=== PATIENT | female | born 1985 | race Caucasian/White ===

== ENCOUNTER 2017-01-22 10:18 | Day surgery (SDC) | payer OTHER ==
[2017-01-21 11:21] VITALS: BMI 30.2
--- NOTE | 2017-01-21 17:18 | PREOPHP ---
DATE OF ADMISSION: 01/22/2017 REASON FOR ADMISSION: Laparoscopic bilateral tubal ligation. HISTORY OF PRESENT ILLNESS: This is a 31-year-old female, 4, para 3, who has requested ster ilization on the basis of multiparity. The alternatives to this, the benefits from it, the risks, a nd possible complications, as well as 1% failure rate were discussed in the office in detail. She w as allowed to ask questions and all her questions were answered to her satisfaction, and she signed the appropriate surgical informed consents. PAST MEDICAL HISTORY: The patient denies any medical problems including cardiovascular disease, hyp ertension, diabetes, renal disease, liver disease, thyroid disease and neurological problems. ALLERGIES: SHE HAS NO KNOWN ALLERGIES. MEDICATIONS: She takes no medications on a regular basis. FAMILY HISTORY: Noncontributory. REVIEW OF SYSTEMS: A 12-point review of systems is noncontributory. PHYSICAL EXAMINATION: GENERAL: Well-developed and nourished, in no distress, alert and oriented x3. VITAL SIGNS: Showed temperature to be 98, blood pressure 130/82, respirations 16 per minute, the pu lse is 72 per minute, regular. Her height is 5 feet 2 inches and weight 160 pounds. HEENT: Within normal limits. Pupils are PERRLA. NECK: Supple. Thyroid is not palpable. There is no lymphadenopathy. BREASTS: Show no masses or lumps. LUNGS: Clear to percussion and auscultation. HEART: Normal sinus rhythm without a murmur. ABDOMEN: Soft. There is no hepatosplenomegaly or hernias. PELVIC: Normal external genitalia. Vagina is normal. Cervix is normal without lesions. Uterus is small, firm. There are no adnexal masses present. LOWER EXTREMITIES: Within normal limits. NEUROLOGIC: Also normal. IMPRESSION: Multiparity, desires sterilization. To be admitted tomorrow, 01/22/2017 for laparoscop ic bilateral tubal ligation. Dictated By: KELSEA SCHWARTZ/NEIL Conf#: [id number] DID#: [id number]
[~2017-01-22] VITALS: Ht 154.9 cm; Wt 72.1 kg
[2017-01-22] VITALS (11 sets, daily range): BP systolic 106–120; BP diastolic 55–74; PULSE 72–96; RESP 12–18; Ht 154.9 cm; Wt 72.1 kg
[2017-01-22] MEDS ORDERED: BUPIVACAINE 0.5%/EPI (SDV) 30 ML INJ ONE (12:30)
[2017-01-22] MEDS ORDERED: FENTAnyl 50 MCG/ML VIAL ONE ×2 (13:12→13:46)
[2017-01-22] MEDS ORDERED: MIDAZOLAM 1 MG/ML 2 ML INJ ONE (13:12)
[2017-01-22] MEDS ORDERED: GLYCOPYRROLATE 0.4 MG INJ ONE (13:12)
[2017-01-22] MEDS ORDERED: ONDANSETRON 4 MG INJ ONE (13:12)
[2017-01-22] MEDS ORDERED: CEFAZOLIN 1 GM INJ ONE (13:12)
[2017-01-22] MEDS ORDERED: PROPOFOL 20 ML ONE (13:12)
[2017-01-22] MEDS ORDERED: ROCURONIUM 50 MG INJ ONE (13:12)
[2017-01-22] MEDS ORDERED: NEOSTIGMINE 3 MG/3 ML SYRINGE ONE (13:12)
[2017-01-22] MEDS ORDERED: DEXAMETHASONE 4 MG/ML 1 ML INJ ONE (13:12)
[2017-01-22] MEDS ORDERED: KETOROLAC 30 MG INJ ONE (13:40)
[2017-01-22] MEDS ORDERED: SUGAMMADEX SODIUM 200 MG/2 ML VIAL IV ONE (13:52)
[2017-01-22] MEDS ORDERED: ALBUTEROL 0.083% (NEB) 2.5 MG/3 ML AMP HHN PRN (14:00)
[2017-01-22] MEDS ORDERED: LABETALOL HCL 20MG INJ IV PRN (14:00)
[2017-01-22] MEDS ORDERED: HYDROmorphONE (0.2 MG/ML) 10ML SYG IV PRN ×3 (14:00)
[2017-01-22] MEDS ORDERED: DIPHENHYDRAMINE 50 MG INJ IV PRN (14:00)
[2017-01-22] MEDS ORDERED: OXYCODONE/ACETAMINOPHEN (5/325) TAB PO PRN ×4 (14:00→14:30)
[2017-01-22] MEDS ORDERED: EPHEDrine SULFATE 50 MG/5 ML SYG IV PRN (14:00)
[2017-01-22] MEDS ORDERED: TRIMETHOBENZAMIDE 100 MG/ML VIAL IM PRN (14:00)
[2017-01-22] MEDS ORDERED: FENTAnyl 50 MCG/ML VIAL IV PRN ×3 (14:00)
[2017-01-22] MEDS ORDERED: ONDANSETRON 4 MG INJ IV PRN ×2 (14:00→14:30)
[2017-01-22] MEDS ORDERED: hydrALAzine 20 MG INJ IV PRN (14:00)
[2017-01-22] MEDS ORDERED: MEPERIDINE 25 MG INJ IV PRN (14:00)
[2017-01-22] MEDS ORDERED: MIDAZOLAM 1 MG/ML 2 ML INJ IV PRN (14:00)
[2017-01-22] MEDS ORDERED: IPRATROPIUM (NEB) 0.5 MG/2.5 ML AMP HHN PRN (14:00)
--- NOTE | 2017-01-22 14:04 | PD.PPDC ---
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 Diagnosis Final Diagnosis: Multiparity-BTL Condition Patient Condition: Good Diet Diet: Resume Regular Diet Activity/Restrictions Activity: Normal Activity May Shower Wound/Drain Care Instructions Wound/Drain Care Instructions: Wash with soap and water Keep clean and dry Follow-up Follow-up with Physician: 2, Week/Weeks Return to clinic for BEAD WIRE INSULATOR Instructions: Fever greater than 101 Worsening abdominal pain Unable to tolerate diet Surgical Instructions: Incisional Drainage Incisional Redness (Shower and wash hair aas usual and change badaids) Comment: May shower and wash hair as usual.Change Band aids KELSEA COLE MD Jan 22, 2017 14:04
[2017-01-22] MEDS ORDERED: LACTATED RINGER'S 1,000 ML IV SCH (14:08)
--- NOTE | 2017-01-22 14:08 | SIPON ---
Date/Time of Note Date/Time of Note See dictaTED NOTE DATE: 01/22/17 TIME: 14:06 Operative Report Preoperative Diagnosis Multiparity Postoperative Diagnosis Same. Operation/Procedure Performed Laparoscopic bilateral tubal ligation. 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
[2017-01-22] MEDS ORDERED: morphine 2 MG INJ IV PRN (14:30)
[2017-01-22] MEDS ORDERED: IBUPROFEN 600 MG TAB PO PRN (14:30)
[2017-01-22] MEDS ORDERED: ACETAMINOPHEN 325 MG TAB PO PRN (14:30)
--- NOTE | 2017-01-22 14:49 | OPR ---
DATE OF OPERATION: 01/22/2017 PREOPERATIVE DIAGNOSIS: Multiparity. POSTOPERATIVE DIAGNOSIS: Multiparity. PROCEDURE: Laparoscopic bilateral tubal ligation. SURGEON: Kelsea Vale MD. ANESTHESIA: General by Dr. Bowen. SPECIMENS: None. ESTIMATED BLOOD LOSS: Negligible. COMPLICATIONS: None. PROCEDURE AND FINDINGS: With the patient under general anesthesia, she was laid on the table in the dorsal lithotomy position. Her perineum and vagina was prepped with Betadine and then a Weinstein cath eter was inserted. The abdomen and the upper thighs were prepped with ChloraPrep and after 3 minute s, she was draped in the usual sterile fashion. A small 5 mm incision was done at the level of the umbilicus through which a Veress needle was inserted while we were tenting up the anterior abdominal wall. Once the tip of the needle was ascertained to be intraperitoneal by the hanging drop saline technique, it was then connected to the CO2 insufflator. Good pneumoperitoneum was obtained. The n eedle was removed and a 5 mm trocar was passed in. A laparoscope with the endocamera was inserted. A large amount of adhesions were found to the anterior wall of the abdomen. A second port was inst alled in the hypogastric area under direct vision without any problems. With this second trocar, a Kleppinger clamp connected to the gyrus device and 35 wilson of current was done. The right tube was identified and then taken in the mid portion and burned through and through for 1.5 cm. The same w as repeated on the contralateral side. There was no bleeding or complications. Pictures were taken for documentation. The instruments were then removed from the patient's abdomen as well as as much CO2 as possible. The incisions were infiltrated with 0.5% Marcaine with epinephrine, a total of 20 mL. They were closed with 4-0 Monocryl. Then Band-Aids were applied. The patient withstood the p rocedure well and was taken to the recovery room with all vital signs stable. EBL was negligible. Dictated By: KELSEA SCHWARTZ/NEIL Conf#: [id number] DID#: [id number]
== END 2017-01-22 16:45 | disposition home or self-care (01) ==
LOC: SDS 10:18
PROVIDERS: ATTEND Specialist
DX: Z30.2 Encounter for sterilization (principal)
CPT/HCPCS: 58670; 84703; J0690; J1100; J1885; J2250; J2405; J3010; Z7512; Z7610; J2710